=== PATIENT | male | born 1950 | race Caucasian/White ===

== ENCOUNTER → 2016-11-20 | Outpatient (CLI) | payer MEDICARE, BC ==
[2016-11-20 13:19] LABS: CHLORIDE,CL 110 mmol/L (98-110); SODIUM,NA 141 mmol/L (136-146)
== END ==
LOC: MW.CHFP 12:40
PROVIDERS: ATTEND Emergency Medicine
DX: E78.00 Pure hypercholesterolemia, unspecified (principal); I10 Essential (primary) hypertension; E11.9 Type 2 diabetes mellitus without complications
CPT/HCPCS: 36415; 80053; 80061; 83036

== ENCOUNTER → 2016-11-26 | Outpatient (CLI) | payer MEDICARE, BC | LOC: MW.CHFP 08:00 | PROVIDERS: ATTEND Emergency Medicine | DX: R51 Headache (principal); F41.9 Anxiety disorder, unspecified; E11.9 Type 2 diabetes mellitus without complications; E78.00 Pure hypercholesterolemia, unspecified | CPT/HCPCS: 99214 ==

== ENCOUNTER 2018-01-17 09:13 | Observation (INO) | payer MEDICARE, BC ==
[2018-01-17] MEDS ORDERED: Ondansetron 4 MG/2 ML SDV IVPUSH ONE (09:27)
[2018-01-17] MEDS ORDERED: Morphine 2 MG/ML Syringe IVPUSH ONE (09:27)
[2018-01-17] MEDS ORDERED: hydrALAZINE 20 MG/ML SDV IVPUSH ONE (09:27)
[2018-01-17] MEDS ORDERED: Lisinopril 10 MG Tab PO ONE (09:28)
[2018-01-17] MEDS ORDERED: Sodium Chloride 0.9% 1,000 ML IV SCH (09:30)
--- NOTE | 2018-01-17 09:31 | EDM.PDOC ---
ED HPI GENERAL MEDICAL PROBLEM - General Chief Complaint: Gastrointestinal Problem Stated Complaint: VOMITING Time Seen by Provider: 01/17/18 09:23 - History of Present Illness INITIAL COMMENTS - FREE TEXT/NARRATIVE: HISTORY AND PHYSICAL: History of present illness: Patient is a 67-year-old male presents with concern of abdominal pain nausea and vomiting he states he eats macaroni salad last night with multiple episodes of emesis subsequent system abdominal pain this is left-sided he did not take his antihypertensive medications morning. He also uses hydrocodone when necessary for chronic intermittent headache. He denies chest pain shortness of breath trauma or other concern. Review of systems: As per history of present illness and below otherwise all systems reviewed and negative. Past medical history: As per history of present illness and as reviewed below otherwise noncontributory. Surgical history: As per history of present illness and as reviewed below otherwise noncontributory. Social history: No reported history of drug or alcohol abuse. Family history: As per history of present illness and as reviewed below otherwise noncontributory. Physical exam: HEENT: Atraumatic, normocephalic, pupils reactive, negative for conjunctival pallor or scleral icterus, mucous membranes moist, throat clear, neck supple, nontender, trachea midline. Lungs: Clear to auscultation, breath sounds equal bilaterally, chest nontender. Heart: S1S2, regular, negative for clicks, rubs, or JVD. Abdomen: Soft, nondistended, no localized tenderness some mild left sided tenderness without rebound or guarding. Negative for masses or hepatosplenomegaly. Negative for costovertebral tenderness. Pelvis: Stable nontender. Genitourinary: Deferred. Rectal: Deferred. Extremities: Atraumatic, negative for cords or calf pain. Neurovascular unremarkable. Neuro: Awake, alert, oriented. Cranial nerves II through XII unremarkable. Cerebellum unremarkable. Motor and sensory unremarkable throughout. Exam nonfocal. Diagnostics: CBC CMP PT/INR troponin chest x-ray EKG CT brain CT abdomen and pelvis UA lipase Therapeutics: IV monitor saline 1 25 mL/h hydralazine 10 mg IV lisinopril 30 mg by mouth morphine sulfate 2 mg IV Zofran 4 mg IV Impression: #1 abdominal pain with vomiting #2 history of peripheral vascular disease #3 history hypertension #4 history of chronic intermittent cephalgia Definitive disposition and diagnosis as appropriate pending reevaluation and review of above. - Related Data Allergies Allergy/AdvReac Type Severity Reaction Status Date / Time No Known Allergies Allergy Verified 01/17/18 09:29 Home Meds: Home Meds Clopidogrel [Plavix] 75 mg PO DAILY 10/18/13 [History] Lisinopril [Prinivil] 30 mg PO DAILY 10/18/13 [History] atorvaSTATin [Lipitor] 10 mg PO BEDTIME 10/18/13 [History] Aspirin 325 mg PO DAILY 12/28/13 [History] Aspirin 325 mg PO DAILY 01/17/18 [History] Cilostazol [Pletal] 100 mg PO DAILY 01/17/18 [History] Saxagliptin HCl/Metformin HCl [Kombiglyze XR 2.5-1,000 MG] 1 tab PO WITHDINNER 01/17/18 [History] ED ROS GENERAL - Review of Systems Review Of Systems: ROS reveals no pertinent complaints other than HPI. ED EXAM, GENERAL - Physical Exam Exam: See Below (See dictation) Course - Vital Signs Last Recorded V/S: Last Vital Signs Temp 36.3 C 01/17/18 09:33 Pulse 77 01/17/18 10:20 Resp 20 01/17/18 10:20 BP 186/79 H 01/17/18 10:20 Pulse Ox 93 L 01/17/18 10:20 - Orders/Labs/Meds Orders: Active Orders 24 hr Category Date Time Status Cardiac Monitoring [RC] . DIRECTED Care 01/17/18 09:26 Active EKG Documentation Completion [RC] STAT Care 01/17/18 09:26 Active Pulse Oximetry [RC] ASDIRECTED Care 01/17/18 09:26 Active Abdomen Pelvis w Cont [CT] Stat Exams 01/17/18 09:26 Taken Chest 1V Frontal [CR] Stat Exams 01/17/18 09:27 Taken Head wo Cont [CT] Stat Exams 01/17/18 09:26 Taken UA W/MICROSCOPIC [URIN] Stat Lab 01/17/18 11:00 Ordered Sodium Chloride 0.9% [Normal Saline] 1,000 ml Med 01/17/18 09:30 Active IV STAT Tamsulosin [Flomax] Med 01/17/18 11:39 Once 0.4 mg PO ONETIME ONE Medication Orders Sodium Chloride (Normal Saline) 1,000 mls @ 125 mls/hr IV STAT LINA Last Admin: 01/17/18 10:05 Dose: 125 mls/hr Tamsulosin HCl (Flomax) 0.4 mg PO ONETIME ONE Stop: 01/17/18 11:40 Labs: Laboratory Tests 01/17/18 01/17/18 01/17/18 Range/Units 09:41 09:41 09:41 WBC 12.96 H (4.0-11.0) K/uL RBC 4.65 (4.50-5.90) M/uL Hgb 15.0 (13.0-17.0) g/dL Hct 42.4 (38.0-50.0) % MCV 91.2 (80.0-98.0) fL MCH 32.3 H (27.0-32.0) pg MCHC 35.4 (31.0-37.0) g/dL RDW Std Deviation 43.1 (28.0-62.0) fl RDW Coeff of Nelli 13 (11.0-15.0) % Plt Count 197 (150-400) K/uL MPV 9.80 (7.40-12.00) fL Neut % (Auto) 87.9 H (48.0-80.0) % Lymph % (Auto) 7.7 L (16.0-40.0) % Mason % (Auto) 3.9 (0.0-15.0) % Eos % (Auto) 0.3 (0.0-7.0) % Baso % (Auto) 0.2 (0.0-1.5) % Neut # (Auto) 11.4 H (1.4-5.7) K/uL Lymph # (Auto) 1.0 (0.6-2.4) K/uL Mason # (Auto) 0.5 (0.0-0.8) K/uL Eos # (Auto) 0.0 (0.0-0.7) K/uL Baso # (Auto) 0.0 (0.0-0.1) K/uL Nucleated RBC % 0.0 /100WBC Nucleated RBCs # 0 K/uL INR 1.12 Sodium 140 (136-148) mmol/L Potassium 4.2 (3.5-5.1) mmol/L Chloride 104 (98-107) mmol/L Carbon Dioxide 26.8 (21.0-32.0) mmol/L BUN 27 H (7.0-18.0) mg/dL Creatinine 1.3 (0.8-1.3) mg/dL Est Cr Clr Drug Dosing 56.15 mL/min Estimated GFR (MDRD) 54.9 ml/min Glucose 256 H (74-106) mg/dL Calcium 9.1 (8.5-10.1) mg/dL Total Bilirubin 0.4 (0.2-1.0) mg/dL AST 12 L (15-37) IU/L ALT 20 (14-63) IU/L Alkaline Phosphatase 92 (46-116) U/L Troponin I < 0.050 (0.000-0.056) ng/mL Total Protein 7.5 (6.4-8.2) g/dL Albumin 3.8 (3.4-5.0) g/dL Globulin 3.7 H (2.0-3.5) g/dL Albumin/Globulin Ratio 1.0 L (1.3-2.8) Lipase 62 L (73-393) U/L Urine Color Urine Appearance Urine pH (5.0-8.0) Ur Specific [place] (1.001-1.035) Urine Protein (NEGATIVE) mg/dL Urine Glucose (UA) (NEGATIVE) mg/dL Urine Ketones (NEGATIVE) mg/dL Urine Occult Blood (NEGATIVE) Urine Nitrite (NEGATIVE) Urine Bilirubin (NEGATIVE) Urine Urobilinogen (<2.0) EU/dL Ur Leukocyte Esterase (NEGATIVE) Urine RBC (0-2/HPF) Urine WBC (0-5/HPF) Ur Epithelial Cells (NONE-FEW) Urine Bacteria (NEGATIVE) 01/17/18 Range/Units 11:00 WBC (4.0-11.0) K/uL RBC (4.50-5.90) M/uL Hgb (13.0-17.0) g/dL Hct (38.0-50.0) % MCV (80.0-98.0) fL MCH (27.0-32.0) pg MCHC (31.0-37.0) g/dL RDW Std Deviation (28.0-62.0) fl RDW Coeff of Nelli (11.0-15.0) % Plt Count (150-400) K/uL MPV (7.40-12.00) fL Neut % (Auto) (48.0-80.0) % Lymph % (Auto) (16.0-40.0) % Mason % (Auto) (0.0-15.0) % Eos % (Auto) (0.0-7.0) % Baso % (Auto) (0.0-1.5) % Neut # (Auto) (1.4-5.7) K/uL Lymph # (Auto) (0.6-2.4) K/uL Mason # (Auto) (0.0-0.8) K/uL Eos # (Auto) (0.0-0.7) K/uL Baso # (Auto) (0.0-0.1) K/uL Nucleated RBC % /100WBC Nucleated RBCs # K/uL INR Sodium (136-148) mmol/L Potassium (3.5-5.1) mmol/L Chloride (98-107) mmol/L Carbon Dioxide (21.0-32.0) mmol/L BUN (7.0-18.0) mg/dL Creatinine (0.8-1.3) mg/dL Est Cr Clr Drug Dosing mL/min Estimated GFR (MDRD) ml/min Glucose (74-106) mg/dL Calcium (8.5-10.1) mg/dL Total Bilirubin (0.2-1.0) mg/dL AST (15-37) IU/L ALT (14-63) IU/L Alkaline Phosphatase (46-116) U/L Troponin I (0.000-0.056) ng/mL Total Protein (6.4-8.2) g/dL Albumin (3.4-5.0) g/dL Globulin (2.0-3.5) g/dL Albumin/Globulin Ratio (1.3-2.8) Lipase (73-393) U/L Urine Color YELLOW Urine Appearance CLOUDY Urine pH 6.0 (5.0-8.0) Ur Specific [place] 1.020 (1.001-1.035) Urine Protein TRACE (NEGATIVE) mg/dL Urine Glucose (UA) 500 H (NEGATIVE) mg/dL Urine Ketones TRACE H (NEGATIVE) mg/dL Urine Occult Blood LARGE H (NEGATIVE) Urine Nitrite NEGATIVE (NEGATIVE) Urine Bilirubin NEGATIVE (NEGATIVE) Urine Urobilinogen 0.2 (<2.0) EU/dL Ur Leukocyte Esterase NEGATIVE (NEGATIVE) Urine RBC TOO DIOGENES (0-2/HPF) Urine WBC 1-2 (0-5/HPF) Ur Epithelial Cells RARE (NONE-FEW) Urine Bacteria FEW (NEGATIVE) Meds: Medications Generic Name Dose Route Start Last Admin Trade Name Freq PRN Reason Stop Dose Admin Sodium Chloride 1,000 mls @ 125 mls/hr 01/17/18 09:30 01/17/18 10:05 Normal Saline IV 125 mls/hr STAT LINA Administration Tamsulosin HCl 0.4 mg 01/17/18 11:39 Flomax PO 01/17/18 11:40 ONETIME ONE Discontinued Medications Generic Name Dose Route Start Last Admin Trade Name Freq PRN Reason Stop Dose Admin Hydralazine HCl 10 mg 01/17/18 09:27 01/17/18 10:04 Apresoline IVPUSH 01/17/18 09:28 10 mg ONETIME ONE Administration Hydromorphone HCl 1 mg 01/17/18 11:36 Dilaudid IVPUSH 01/17/18 11:37 ONETIME ONE Iopamidol 85 ml 01/17/18 10:46 01/17/18 10:52 Isovue Multipack-370 (76%) IVPUSH 01/17/18 10:47 85 ml ONETIME STA Administration Ketorolac Tromethamine 30 mg 01/17/18 11:36 Toradol IVPUSH 01/17/18 11:37 ONETIME ONE Lisinopril 30 mg 01/17/18 09:28 01/17/18 10:04 Prinivil PO 01/17/18 09:29 30 mg ONETIME ONE Administration Morphine Sulfate 2 mg 01/17/18 09:27 01/17/18 10:01 Morphine IVPUSH 01/17/18 09:28 2 mg ONETIME ONE Administration Ondansetron HCl 4 mg 01/17/18 09:27 01/17/18 10:01 Zofran IVPUSH 01/17/18 09:28 4 mg ONETIME ONE Administration Departure - Departure Time of Disposition: 11:39 Disposition: Refer to Observation Condition: Good Clinical Impression: Urolithiasis, Hypertension - Discharge Information Referrals: Andrews Contreras MD [Primary Care Provider] - Forms: ED Department Discharge - My Orders Last 24 Hours: My Active Orders 01/17/18 09:26 Cardiac Monitoring [RC] . DIRECTED EKG Documentation Completion [RC] STAT Pulse Oximetry [RC] ASDIRECTED Abdomen Pelvis w Cont [CT] Stat Head wo Cont [CT] Stat 01/17/18 09:27 Chest 1V Frontal [CR] Stat 01/17/18 09:30 Sodium Chloride 0.9% [Normal Saline] 1,000 ml IV STAT 01/17/18 11:00 UA W/MICROSCOPIC [URIN] Stat 01/17/18 11:39 Tamsulosin [Flomax] 0.4 mg PO ONETIME ONE - Assessment/Plan Last 24 Hours: My Active Orders 01/17/18 09:26 Cardiac Monitoring [RC] . DIRECTED EKG Documentation Completion [RC] STAT Pulse Oximetry [RC] ASDIRECTED Abdomen Pelvis w Cont [CT] Stat Head wo Cont [CT] Stat 01/17/18 09:27 Chest 1V Frontal [CR] Stat 01/17/18 09:30 Sodium Chloride 0.9% [Normal Saline] 1,000 ml IV STAT 01/17/18 11:00 UA W/MICROSCOPIC [URIN] Stat 01/17/18 11:39 Tamsulosin [Flomax] 0.4 mg PO ONETIME ONE
[2018-01-17 10:10] LABS: CHLORIDE,CL 104 mmol/L (98-107); SODIUM,NA 140 mmol/L (136-148)
[2018-01-17] MEDS ORDERED: Iopamidol 755 MG/ML 500 ML Multipack Bottle IVPUSH STA (10:46)
[2018-01-17] MEDS ORDERED: Ketorolac 30 MG/ML SDV IVPUSH ONE (11:36)
[2018-01-17] MEDS ORDERED: HYDROmorphone 1 MG/ML Syringe IVPUSH ONE (11:36)
[2018-01-17] MEDS ORDERED: Tamsulosin 0.4 MG Cap.ER PO ONE (11:39)
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
--- NOTE | 2018-01-17 15:06 | CONS ---
DATE OF CONSULTATION: 01/17/2018 DATE OF : 1950 PRIMARY CARE PHYSICIAN: Andrews Contreras M.D. HISTORY OF PRESENT ILLNESS: A 67-year-old, he was admitted through the emergency room with sudden onset of left flank pain. His UA showed microscopic hematuria. No UTI. His white blood count was 12,000. His CT scan showed an 8 mm left upper ureteral stone. Kidneys are clean on both sides. PAST MEDICAL HISTORY: Significant for being diabetic, hypertensive, and medications for both, and he had some sort of femoral-popliteal bypass on the left side. PHYSICAL EXAMINATION: GENERAL APPEARANCE: Normal. He is alert and oriented. This is now roughly about 2 to 3 hours since I was notified of his presence. He is now pain-free. VITAL SIGNS: His blood pressure has come down close to a normal level. He has not taken his blood pressure medication this morning. ABDOMEN: Shows no abdominal masses or tenderness. RECTAL: Prostate feels benign. Does not feel enlarged. DIAGNOSIS: Left upper ureteral stone 8 mm with hydronephrosis 2+. No urinary tract infection. PLAN: He is sent home on Lorcet and Flomax. He will be scheduled for ESWL this coming . AZUCENA KERR /[id number]
[2018-01-17] MEDS ORDERED: Insulin Aspart 100 Units/ML 3 ML Pen SUBCUT SCH (17:00)
[2018-01-17] MEDS ORDERED: atorvaSTATin 10 MG Tab PO SCH (21:00)
[2018-01-18] MEDS ORDERED: Lisinopril 10 MG Tab PO SCH (09:00)
--- NOTE | 2018-01-19 18:49 | CT ---
EXAM DATE: 01/17/18 PATIENT'S AGE: 67 Patient: DAMIAN WASHINGTON Facility: [place], [place] Site . Site : 1950 Study: CT Head [id number]/7/2018 10:53:42 AM Ordering Physician: Meagan Schulz Final Report: HISTORY: Nausea and vomiting. Headache. TECHNIQUE: Noncontrast head CT. COMPARISON: 10/19/2013. FINDINGS: There is no acute ischemic infarct or acute intracranial hemorrhage. No mass effect or midline shift. No hydrocephalus. No extra-axial collection or hematoma. No acute loss of lopez-white differentiation. The mastoid air cells are clear. Mild mucosal thickening involving several ethmoid air cells and the right frontal sinus. No acute sinusitis. No acute skull fracture. IMPRESSION: No acute intracranial disease. Dictated by Pedro Greco MD @ 01/17/2018 11:10:39 AM Please note that all CT scans at this facility use dose modulation, iterative reconstruction, and/or weight-based dosing when appropriate to reduce radiation dose to as low as reasonably achievable. Dictated by: Pedro Greco MD @ 01/17/2018 11:10:43 (Electronic Signature) Report Signed by Proxy. [facility]
--- NOTE | 2018-01-19 18:50 | CR ---
EXAM DATE: 01/17/18 PATIENT'S AGE: 67 Patient: DAMIAN WASHINGTON Facility: [place], [place] Site . Site : 1950 Study: XRay Chest [id number]/7/2018 10:56:03 AM Ordering Physician: Meagna Schulz Final Report: Pain shortness of breath. Portable chest. FINDINGS : Normal cardiac mediastinal silhouette lungs are clear. No acute airspace or interstitial process. No effusion or pneumothorax. Dictated by Carmela Womack MD @ Jan 17 2018 11:13AM (Electronic Signature) Report Signed by Proxy. MICHELLE
--- NOTE | 2018-01-19 18:51 | CT ---
EXAM DATE: 01/17/18 PATIENT'S AGE: 67 Patient: DAMIAN WASHINGTON Facility: [place], [place] Site . Site : 1950 Study: CT Abdomen/Pelvis [id number]/7/2018 11:03:11 AM Ordering Physician: Meagan Schulz Final Report: INDICATION: Abdominal pain, nausea, vomiting. TECHNIQUE: 3 mm axial imaging has been performed through the abdomen and pelvis after nonionic IV contrast. Sagittal and coronal reconstructions obtained. COMPARISON: 10/19/2013 CT. FINDINGS: The lung bases are free of infiltrate. The liver, spleen, pancreas, bilateral adrenal glands are within normal limits. The right kidney demonstrates normal enhancement. There is a small cyst. No hydronephrosis or residual kidney stones on the right are noted. On the left there is significant perinephric stranding and edema. There is significant hydronephrosis. There is delay in the appearance of the nephrogram. In the mid upper ureter on image #75 there is a 6 x 5 mm ureteric stone. Distally the ureter is of normal size. No other ureter stones are noted. There are 2 mid to upper pole small kidney stones on the left. The urinary bladder is fluid filled and unremarkable. The prostate is enlarged. Moderate diverticulosis of the lower colon is noted. Appendix is within normal limits. No significant free fluid is seen. IMPRESSION: 1. Finds are consistent with high-grade obstruction due to a the mid to upper ureteric stone on the left measuring 6 x 5 mm. There is significant edema and perinephric stranding. Hydronephrosis is noted. 2. There are 2 small nonobstructing upper pole left kidney stones identified. 3. No radiopaque kidney stones are noted on the right. 4. Diverticulosis of the colon is identified without evidence for diverticulitis. No evidence for bowel obstruction. Dictated by Tyler Lopez MD @ 01/17/2018 11:30:47 AM Please note that all CT scans at this facility use dose modulation, iterative reconstruction, and/or weight-based dosing when appropriate to reduce radiation dose to as low as reasonably achievable. Dictated by: Tyler Lopez MD @ 01/17/2018 11:30:53 (Electronic Signature) Report Signed by Proxy. [facility]
== END 2018-01-17 15:40 | disposition home or self-care (01) ==
LOC: MW.ED 09:13 → MW.MS 12:13
PROVIDERS: ADMIT Urology; ATTEND Urology
DX: N13.2 Hydronephrosis with renal and ureteral calculous obstruction (principal); I10 Essential (primary) hypertension; E11.51 Type 2 diabetes mellitus with diabetic peripheral angiopathy without gangrene; E78.00 Pure hypercholesterolemia, unspecified; M19.90 Unspecified osteoarthritis, unspecified site; F17.210 Nicotine dependence, cigarettes, uncomplicated; Z79.02 Long term (current) use of antithrombotics/antiplatelets; Z79.82 Long term (current) use of aspirin; Z79.84 Long term (current) use of oral hypoglycemic drugs; Z79.899 Other long term (current) drug therapy
CPT/HCPCS: 36415; 70450; 71045; 74177; 80053; 81001; 83690; 84484; 85025; 85610; 93005; 96361; 96374; 96375; 96376; 99285; A9270; J0360; J1170; J1885; J2270; J2405; J7040; Q9967; G0378

== ENCOUNTER 2018-01-19 00:26 | Observation (INO) | payer MEDICARE, BC ==
[2018-01-19] MEDS ORDERED: Sodium Chloride 0.9% 1,000 ML IV ONE (00:36)
[2018-01-19] MEDS ORDERED: Ketorolac 30 MG/ML SDV IVPUSH ONE (00:37)
[2018-01-19] MEDS ORDERED: hydrALAZINE 20 MG/ML SDV IVPUSH ONE (01:58)
[2018-01-19] MEDS ORDERED: HYDROmorphone 1 MG/ML Syringe IVPUSH ONE (01:58)
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
[2018-01-19] MEDS ORDERED: cefTRIAXone 1 GM in Sodium Chloride 0.9% 50 ML IV ONE (02:25)
[2018-01-19] MEDS ORDERED: cefTRIAXone 1 GM in Premix Bag 1 BAG IV ONE (02:30)
[2018-01-19] MEDS ORDERED: HYDROmorphone 2 MG/ML Syringe IVPUSH PRN (04:12)
[2018-01-19] MEDS ORDERED: Ondansetron 4 MG/2 ML SDV IVPUSH PRN (04:12)
[2018-01-19] MEDS ORDERED: HYDROmorphone 1 MG/ML Syringe ONE (04:46)
[2018-01-19] MEDS: Sodium Chloride 0.9% 1,000 ML IV SCH ×2 (04:57→15:42)
[2018-01-19] MEDS: Insulin Aspart 100 Units/ML 3 ML Pen SUBCUT SCH ×5 (06:45→17:07)
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
[2018-01-19] MEDS ORDERED: HYDROmorphone 1 MG/ML Syringe IVPUSH PRN (08:15)
[2018-01-19] MEDS: Lisinopril 10 MG Tab PO SCH (08:28)
[2018-01-19] MEDS ORDERED: Acetaminophen/oxyCODONE 325-5 MG Tab PO PRN (09:00)
[2018-01-19] MEDS: Topiramate 100 MG Tab PO SCH ×2 (09:44→20:22)
[2018-01-19] MEDS ORDERED: Morphine PF 30 MG/30 ML PCA Vial IV SCH (11:30)
[2018-01-19] MEDS ORDERED: Tamsulosin 0.4 MG Cap.ER PO SCH (21:00)
[2018-01-19] MEDS ORDERED: atorvaSTATin 10 MG Tab PO SCH (21:00)
[2018-01-20] MEDS: Insulin Aspart 100 Units/ML 3 ML Pen SUBCUT SCH ×3 (00:56→13:24)
[2018-01-20] MEDS ORDERED: cefTRIAXone 1 GM in Premix Bag 1 BAG IV SCH (02:30)
[2018-01-20] MEDS: Sodium Chloride 0.9% 1,000 ML IV SCH (02:55)
[2018-01-20 05:57] LABS: CHLORIDE,CL 102 mmol/L (98-107); SODIUM,NA 135 mmol/L (136-148)
--- NOTE | 2018-01-20 08:55 | PCM.PN ---
- General Info Date of Service: 01/20/18 Admission Dx/Problem (Free Text): Admission Diagnosis/Problem Admission Diagnosis/Problem Hypertension Subjective Update: Reports feeling better this morning. No abdominal pain overnight, barely used WORKFORCE SPECIALIST. No chest pain or SOB. Functional Status: Reports: Pain Controlled, Ambulating, Urinating - Review of Systems General: Reports: No Symptoms. Denies: Fever, Weakness, Fatigue HEENT: Reports: No Symptoms. Denies: Sore Throat, Visual Changes Pulmonary: Reports: No Symptoms. Denies: Shortness of Breath Cardiovascular: Reports: No Symptoms. Denies: Chest Pain Gastrointestinal: Reports: No Symptoms. Denies: Abdominal Pain, Nausea, Vomiting Genitourinary: Reports: No Symptoms. Denies: Dysuria, Frequency, Pain, Urgency , Retention, Flank Pain Musculoskeletal: Reports: No Symptoms Skin: Reports: No Symptoms Neurological: Reports: No Symptoms Psychiatric: Reports: No Symptoms - Patient Data Vitals - Most Recent: Last Vital Signs Temp 98.9 F 01/20/18 04:00 Pulse 62 01/20/18 04:00 Resp 18 01/20/18 04:00 BP 158/79 H 01/20/18 04:00 Pulse Ox 93 L 01/20/18 04:00 Weight - Most Recent: 81.193 kg I&O - Last 24 Hours: Intake & Output 01/19/18 01/20/18 01/20/18 22:59 06:59 14:59 Intake Total 1189 522 Output Total 550 1875 Balance 639 -1353 Lab Results Last 24 Hours: Laboratory Results - last 24 hr 01/19/18 01/19/18 01/19/18 Range/Units 00:50 06:25 12:04 WBC (4.0-11.0) K/uL RBC (4.50-5.90) M/uL Hgb (13.0-17.0) g/dL Hct (38.0-50.0) % MCV (80.0-98.0) fL MCH (27.0-32.0) pg MCHC (31.0-37.0) g/dL RDW Std Deviation (28.0-62.0) fl RDW Coeff of Nelli (11.0-15.0) % Plt Count (150-400) K/uL MPV (7.40-12.00) fL Neut % (Auto) (48.0-80.0) % Lymph % (Auto) (16.0-40.0) % Jack % (Auto) (0.0-15.0) % Eos % (Auto) (0.0-7.0) % Baso % (Auto) (0.0-1.5) % Neut # (Auto) (1.4-5.7) K/uL Lymph # (Auto) (0.6-2.4) K/uL [place] # (Auto) (0.0-0.8) K/uL Eos # (Auto) (0.0-0.7) K/uL Baso # (Auto) (0.0-0.1) K/uL Nucleated RBC % /100WBC Nucleated RBCs # K/uL Sodium (136-148) mmol/L Potassium (3.5-5.1) mmol/L Chloride (98-107) mmol/L Carbon Dioxide (21.0-32.0) mmol/L BUN (7.0-18.0) mg/dL Creatinine (0.8-1.3) mg/dL Est Cr Clr Drug Dosing mL/min Estimated GFR (MDRD) ml/min Glucose (74-106) mg/dL POC Glucose 178 H 181 H (60-110) mg/dL Calcium (8.5-10.1) mg/dL Urine Color YELLOW Urine Appearance CLOUDY Urine pH 5.5 (5.0-8.0) Ur Specific [place] >= 1.030 (1.001-1.035) Urine Protein TRACE (NEGATIVE) mg/dL Urine Glucose (UA) 100 H (NEGATIVE) mg/dL Urine Ketones NEGATIVE (NEGATIVE) mg/dL Urine Occult Blood LARGE H (NEGATIVE) Urine Nitrite NEGATIVE (NEGATIVE) Urine Bilirubin NEGATIVE (NEGATIVE) Urine Urobilinogen 0.2 (<2.0) EU/dL Ur Leukocyte Esterase NEGATIVE (NEGATIVE) Urine RBC 2-4 (0-2/HPF) Urine WBC 1-2 (0-5/HPF) Ur Epithelial Cells RARE (NONE-FEW) Amorphous Sediment MODERATE (NEGATIVE) Urine Bacteria 1+ H (NEGATIVE) 01/19/18 01/19/18 01/20/18 Range/Units 16:37 23:50 05:10 WBC 9.72 (4.0-11.0) K/uL RBC 3.90 L (4.50-5.90) M/uL Hgb 12.3 L (13.0-17.0) g/dL Hct 35.7 L (38.0-50.0) % MCV 91.5 (80.0-98.0) fL MCH 31.5 (27.0-32.0) pg MCHC 34.5 (31.0-37.0) g/dL RDW Std Deviation 43.2 (28.0-62.0) fl RDW Coeff of Nelli 13 (11.0-15.0) % Plt Count 166 (150-400) K/uL MPV 10.00 (7.40-12.00) fL Neut % (Auto) 65.7 (48.0-80.0) % Lymph % (Auto) 23.7 (16.0-40.0) % Jack % (Auto) 9.3 (0.0-15.0) % Eos % (Auto) 1.2 (0.0-7.0) % Baso % (Auto) 0.1 (0.0-1.5) % Neut # (Auto) 6.4 H (1.4-5.7) K/uL Lymph # (Auto) 2.3 (0.6-2.4) K/uL Jack # (Auto) 0.9 H (0.0-0.8) K/uL Eos # (Auto) 0.1 (0.0-0.7) K/uL Baso # (Auto) 0.0 (0.0-0.1) K/uL Nucleated RBC % 0.0 /100WBC Nucleated RBCs # 0 K/uL Sodium (136-148) mmol/L Potassium (3.5-5.1) mmol/L Chloride (98-107) mmol/L Carbon Dioxide (21.0-32.0) mmol/L BUN (7.0-18.0) mg/dL Creatinine (0.8-1.3) mg/dL Est Cr Clr Drug Dosing mL/min Estimated GFR (MDRD) ml/min Glucose (74-106) mg/dL POC Glucose 169 H 159 H (60-110) mg/dL Calcium (8.5-10.1) mg/dL Urine Color Urine Appearance Urine pH (5.0-8.0) Ur Specific [place] (1.001-1.035) Urine Protein (NEGATIVE) mg/dL Urine Glucose (UA) (NEGATIVE) mg/dL Urine Ketones (NEGATIVE) mg/dL Urine Occult Blood (NEGATIVE) Urine Nitrite (NEGATIVE) Urine Bilirubin (NEGATIVE) Urine Urobilinogen (<2.0) EU/dL Ur Leukocyte Esterase (NEGATIVE) Urine RBC (0-2/HPF) Urine WBC (0-5/HPF) Ur Epithelial Cells (NONE-FEW) Amorphous Sediment (NEGATIVE) Urine Bacteria (NEGATIVE) 01/20/18 01/20/18 Range/Units 05:10 06:24 WBC (4.0-11.0) K/uL RBC (4.50-5.90) M/uL Hgb (13.0-17.0) g/dL Hct (38.0-50.0) % MCV (80.0-98.0) fL MCH (27.0-32.0) pg MCHC (31.0-37.0) g/dL RDW Std Deviation (28.0-62.0) fl RDW Coeff of Nelli (11.0-15.0) % Plt Count (150-400) K/uL MPV (7.40-12.00) fL Neut % (Auto) (48.0-80.0) % Lymph % (Auto) (16.0-40.0) % Jack % (Auto) (0.0-15.0) % Eos % (Auto) (0.0-7.0) % Baso % (Auto) (0.0-1.5) % Neut # (Auto) (1.4-5.7) K/uL Lymph # (Auto) (0.6-2.4) K/uL Jack # (Auto) (0.0-0.8) K/uL Eos # (Auto) (0.0-0.7) K/uL Baso # (Auto) (0.0-0.1) K/uL Nucleated RBC % /100WBC Nucleated RBCs # K/uL Sodium 135 L (136-148) mmol/L Potassium 3.7 (3.5-5.1) mmol/L Chloride 102 (98-107) mmol/L Carbon Dioxide 24.0 (21.0-32.0) mmol/L BUN 23 H (7.0-18.0) mg/dL Creatinine 1.2 (0.8-1.3) mg/dL Est Cr Clr Drug Dosing 60.83 mL/min Estimated GFR (MDRD) > 60.0 ml/min Glucose 140 H (74-106) mg/dL POC Glucose 139 H (60-110) mg/dL Calcium 8.2 L (8.5-10.1) mg/dL Urine Color Urine Appearance Urine pH (5.0-8.0) Ur Specific [place] (1.001-1.035) Urine Protein (NEGATIVE) mg/dL Urine Glucose (UA) (NEGATIVE) mg/dL Urine Ketones (NEGATIVE) mg/dL Urine Occult Blood (NEGATIVE) Urine Nitrite (NEGATIVE) Urine Bilirubin (NEGATIVE) Urine Urobilinogen (<2.0) EU/dL Ur Leukocyte Esterase (NEGATIVE) Urine RBC (0-2/HPF) Urine WBC (0-5/HPF) Ur Epithelial Cells (NONE-FEW) Amorphous Sediment (NEGATIVE) Urine Bacteria (NEGATIVE) Med Orders - Current: Current Medications Atorvastatin Calcium (Lipitor) 40 mg PO BEDTIME [facility] Last Admin: 01/19/18 20:22 Dose: 40 mg Sodium Chloride (Normal Saline) 1,000 mls @ 75 mls/hr IV ASDIRECTED [facility] Last Admin: 01/20/18 02:55 Dose: 75 mls/hr Ceftriaxone Sodium/Dextrose 1 (gm/ Premix) 50 mls @ 100 mls/hr IV Q24H [facility] Last Admin: 01/20/18 01:35 Dose: 100 mls/hr Insulin Aspart (Novolog) 0 unit SUBCUT Q6H [facility]; Protocol Last Admin: 01/20/18 06:30 Dose: Not Given Lisinopril (Prinivil) 30 mg PO DAILY [facility] Last Admin: 01/19/18 08:28 Dose: 30 mg Morphine Sulfate (Morphine Public Policy Analyst 30 Mg In 30 Ml) 0 mg IV ASDIRECTED [facility]; Protocol Last Admin: 01/19/18 11:43 Dose: 30 mg Ondansetron HCl (Zofran) 4 mg IVPUSH Q4H PRN PRN Reason: Nausea/Vomiting Oxycodone/Acetaminophen (Percocet 325-5 Mg) 1 - 2 tab PO Q4H PRN PRN Reason: Pain Last Admin: 01/19/18 10:08 Dose: 2 tab Tamsulosin HCl (Flomax) 0.4 mg PO BEDTIME [facility] Last Admin: 01/19/18 20:22 Dose: 0.4 mg Topiramate (Topamax) 100 mg PO BID [facility] Last Admin: 01/19/18 20:22 Dose: 100 mg Discontinued Medications Hydralazine HCl (Apresoline) 10 mg IVPUSH ONETIME ONE Stop: 01/19/18 01:59 Last Admin: 01/19/18 02:06 Dose: 10 mg Hydromorphone HCl (Dilaudid) 1 mg IVPUSH ONETIME ONE Stop: 01/19/18 01:59 Last Admin: 01/19/18 02:08 Dose: 1 mg Hydromorphone HCl (Dilaudid) 1 mg IVPUSH Q3H PRN PRN Reason: Pain Last Admin: 01/19/18 04:58 Dose: 1 mg Hydromorphone HCl (Dilaudid) Confirm Administered Dose 1 mg .ROUTE .STK-MED ONE Stop: 01/19/18 04:47 Last Admin: 01/19/18 04:59 Dose: Not Given Hydromorphone HCl (Dilaudid) 1 mg IVPUSH Q3H PRN PRN Reason: Pain Last Admin: 01/19/18 08:25 Dose: 1 mg Sodium Chloride (Normal Saline) 1,000 mls @ 999 mls/hr IV .Bolus ONE Stop: 01/19/18 01:36 Last Admin: 01/19/18 01:02 Dose: 999 mls/hr Ceftriaxone Sodium 1 gm/ (Sodium Chloride) 50 mls @ 100 mls/hr IV ONETIME ONE Stop: 01/19/18 02:54 Last Admin: 01/19/18 05:00 Dose: Not Given Ceftriaxone Sodium/Dextrose (Rocephin In Dextrose,Iso-Osm 1 Gm/50 Ml) Confirm Administered Dose 50 mls @ as directed .ROUTE .STK-MED ONE Stop: 01/19/18 02:29 Last Admin: 01/19/18 05:00 Dose: Not Given Ceftriaxone Sodium/Dextrose 1 (gm/ Premix) 50 mls @ 100 mls/hr IV ONETIME ONE Stop: 01/19/18 02:59 Last Admin: 01/19/18 02:31 Dose: 100 mls/hr Insulin Aspart (Novolog) 0 unit SUBCUT Q6H [facility]; Protocol Last Admin: 01/19/18 06:45 Dose: 1 unit Insulin Aspart (Novolog) 0 unit SUBCUT TIDAC [facility]; Protocol Last Admin: 01/19/18 17:07 Dose: 1 unit Ketorolac Tromethamine (Toradol) 30 mg IVPUSH ONETIME ONE Stop: 01/19/18 00:38 Last Admin: 01/19/18 01:05 Dose: 30 mg - Exam General: Alert, Oriented, Cooperative, No Acute Distress Neck: Supple Lungs: Clear to Auscultation, Normal Respiratory Effort Cardiovascular: Regular Rate, Regular Rhythm, No Murmurs GI/Abdominal Exam: Normal Bowel Sounds, Soft, Non-Tender Extremities: Normal Inspection, Normal Range of Motion, Non-Tender, No Pedal Edema Wound/Incisions: Healing Well Neurological: No New Focal Deficit Psy/Mental Status: Alert, Normal Affect, Normal Mood - Problem List & Annotations (1) Urolithiasis SNOMED Code(s): 10243029, 462422519 Code(s): N20.9 - URINARY CALCULUS, UNSPECIFIED Status: Acute Current Visit: No Qualifiers: Urinary calculus location: ureter Qualified Code(s): N20.1 - Calculus of ureter (2) Chronic headache SNOMED Code(s): 551897627 Code(s): R51 - HEADACHE Status: Chronic Current Visit: Yes Qualifiers: Headache type: unspecified Intractability: intractable Qualified Code(s) : R51 - Headache (3) Hypercholesteremia SNOMED Code(s): 05657328 Code(s): E78.00 - PURE HYPERCHOLESTEROLEMIA, UNSPECIFIED Status: Chronic Current Visit: Yes (4) History of femoropopliteal bypass SNOMED Code(s): 865197566 Code(s): Z98.890 - OTHER SPECIFIED POSTPROCEDURAL STATES Status: Chronic Current Visit: Yes (5) Diabetes type 2, controlled SNOMED Code(s): 52051680 Code(s): E11.9 - TYPE 2 DIABETES MELLITUS WITHOUT COMPLICATIONS Status: Chronic Current Visit: Yes (6) Hypertension SNOMED Code(s): 96335866 Code(s): I10 - ESSENTIAL (PRIMARY) HYPERTENSION Status: Chronic Current Visit: Yes Qualifiers: Hypertension type: essential hypertension Qualified Code(s): I10 - Essential (primary) hypertension - Problem List Review Problem List Initiated/Reviewed/Updated: Yes - My Orders Last 24 Hours: My Active Orders 01/19/18 09:00 Acetaminophen/oxyCODONE [Percocet 325-5 MG] 1 - 2 tab PO Q4H PRN Lisinopril [Prinivil] 30 mg PO DAILY Topiramate [Topamax] 100 mg PO BID 01/19/18 09:04 Resuscitation Status Routine 01/19/18 09:09 Ambulate [RC] ASDIRECTED Intake and Output [RC] Q12H Oxygen Therapy [RC] PRN Up ad Carmen [RC] ASDIRECTED VTE/DVT Education [RC] PER UNIT ROUTINE Vital Signs [RC] Q4H Sequential Compression Device [OM.PC] Per Unit Routine 01/19/18 11:30 Morphine PF [Morphine WORKFORCE SPECIALIST 30 MG in 30 ML] 0 mg IV ASDIRECTED 01/19/18 21:00 Tamsulosin [Flomax] 0.4 mg PO BEDTIME atorvaSTATin [Lipitor] 40 mg PO BEDTIME 01/19/18 Dinner NPO After Midnight [Nothing per Oral After Midnight Diet] [DIET] 01/20/18 02:30 cefTRIAXone [Rocephin in Dextrose,Iso-Osm 1 GM/50 ML] 1 gm Premix Bag 1 bag IV Q24H 01/21/18 05:11 BMP [BASIC METABOLIC PANEL,BMP] [CHEM] AM CBC WITH AUTO DIFF [HEME] AM - Plan Plan:: This 67 year old male admitted with hypertension and ureteral stone 1. Ureteral stone: Leukocytosis resolved. Continue with Rocephin. Consulted Dr Hernández, plan for OR today. Strain all urine. Continue PRN IV and PO pain medications. Continue Flomax. 2. Hypertension: Improved with pain control. Continue Anti-hypertensives and monitor. No chest pain or SOB. 3. Chronic headaches: Stable. Continue Topamax. 4. Hx fem- pop bypass to L leg: Hold Plavix now due to OR. VTe prophylaxis: SCDs Dispo: 1-2 days pending improvement.
[2018-01-20] MEDS ORDERED: Lidocaine 2% 5 ML SDV ONE (09:10)
[2018-01-20] MEDS ORDERED: Propofol 200 MG/20 ML SDV ONE ×2 (09:10→10:37)
[2018-01-20] MEDS ORDERED: Midazolam 1 MG/ML 2 ML SDV ONE (09:11)
[2018-01-20] MEDS ORDERED: fentaNYL 250 MCG/5 ML SDV ONE (09:11)
[2018-01-20] MEDS ORDERED: Ondansetron 4 MG/2 ML SDV ONE (09:12)
[2018-01-20] MEDS ORDERED: Glycopyrrolate 0.2 MG/ML SDV ONE (09:12)
[2018-01-20] MEDS ORDERED: Rocuronium 10 MG/ML 10 ML Syringe ONE (09:12)
[2018-01-20] MEDS ORDERED: Neostigmine Methylsulfate 1 MG/ML 5 ML Syringe ONE (09:12)
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
[2018-01-20] MEDS ORDERED: Iopamidol 408 MG/ML 50 ML SDV ONE (09:16)
[2018-01-20] MEDS ORDERED: Sodium Chloride 0.9% 40 ML ONE (10:10)
[2018-01-20] MEDS ORDERED: Sugammadex Sodium 200 MG/2 ML VIAL ONE (11:36)
[2018-01-20] MEDS: fentaNYL 100 MCG/2 ML SDV IVPUSH PRN ×2 (12:30→12:35)
--- NOTE | 2018-01-20 12:45 | PCM.POSTAN ---
POST ANESTHESIA ASSESSMENT - MENTAL STATUS Mental Status: Alert - RESPIRATORY Respiratory Status: Respiratory Rate WNL, Airway Patent, O2 Saturation Stable - CARDIOVASCULAR CV Status: Pulse Rate WNL, Blood Pressure Stable - GASTROINTESTINAL GI Status: No Symptoms - PAIN Pain Score: 5 - POST OP HYDRATION Hydration Status: Adequate & Stable - OBSERVATIONS Free Text/Narrative:: no anesthesia problems
[2018-01-20] MEDS: Topiramate 100 MG Tab PO SCH (13:14)
[2018-01-20] MEDS: Lisinopril 10 MG Tab PO SCH (13:14)
--- NOTE | 2018-01-20 13:26 | OR ---
SURGEON: Humberto Hernández M.D. DATE OF PROCEDURE: 01/20/2018 PREOPERATIVE DIAGNOSIS: 8 mm left upper ureteral stone. POSTOPERATIVE DIAGNOSIS: 8 mm left upper ureteral stone. OPERATIONS: Ureteroscopy, renoscopy, laser lithotripsy, and double-J stent placement. DESCRIPTION OF THE PROCEDURE: The patient was given general anesthesia, placed in dorsal lithotomy position, prepped and draped in sterile drapes. Cystourethroscopy was done, that was normal. A Glidewire was advanced alongside the stone all the up into the renal pelvis. The guidewire was also advanced and tends to be next to the stone. The stone was not visible, so the guidewire ended up going alongside the stone. The flexible ureteroscope was advanced over the guidewire and the stone was visualized in the upper ureter, but it was not clear, so the saline was used to clean up the debris along with the stone allowing us to bring the stone up into the kidney. The flexible ureteroscope was then traced the stone up into the renal pelvis and the stone was broken up into 3 primary pieces, 2 were eventually taken out. The larger ones were taken out with the 0 tip basket. The last one by the time we got it into the renal pelvis, was a bit too bloody to have adequate visualization. With that done, the procedure was terminated. A 6-Romanian 26 cm double-J stent was placed over the guidewire. The end was in the renal pelvis, the lower end was in the bladder. The string at the end of the stents taped to the outside of the penis. The bladder was emptied and the patient was moved to recovery room in good condition. PLAN: He will come to the office in 1 week from today. We will take the double-J stent off. AZUCENA / CIRILO /[id number]
--- NOTE | 2018-01-20 13:31 | DISCH ---
DATE OF DISCHARGE: PRIMARY CARE PHYSICIAN: Andrews Contreras M.D. This 67-year-old was admitted to the hospital for pain control because of an 8- mm left upper ureteral stone. He was taken to the operating room a day after he presented. The stone was broken up using the laser and the majority of the stone was removed. The patient was sent home with a double-J stent. He will come to the office in 1 week to have that removed. AZUCENA KERR /[id number]
--- NOTE | 2018-01-20 14:23 | CR ---
EXAMINATION: Left ureteroscopy HISTORY: Lithotripsy COMPARISON: CT dated 01/17/2018 TECHNIQUE: 5 images provided. FINDINGS/IMPRESSION: Operative control films demonstrate selection of the left ureter with removal of a proximal left stone. Subsequent placement of a left-sided nephroureteral stent is noted.
[2018-01-20] MEDS ORDERED: Insulin Aspart 100 Units/ML 3 ML Pen SUBCUT SCH (17:00)
--- NOTE | 2018-01-21 09:26 | PCM48HPAN ---
Post Anesthesia Note - EVALUATION WITHIN 48HRS OF ANESTHETIC Vital Signs in Normal Range: Yes Patient Participated in Evaluation: Yes Respiratory Function Stable: Yes Airway Patent: Yes Cardiovascular Function Stable: Yes Hydration Status Stable: Yes Pain Control Satisfactory: Yes Nausea and Vomiting Control Satisfactory: Yes Mental Status Recovered: Yes Resp Rate: 14 Blood Pressure: 140/63
--- NOTE | 2018-01-21 09:35 | PCM48HPAN ---
Post Anesthesia Note - EVALUATION WITHIN 48HRS OF ANESTHETIC Vital Signs in Normal Range: Yes Patient Participated in Evaluation: Yes Respiratory Function Stable: Yes Airway Patent: Yes Cardiovascular Function Stable: Yes Hydration Status Stable: Yes Pain Control Satisfactory: Yes Nausea and Vomiting Control Satisfactory: Yes Mental Status Recovered: Yes Resp Rate: 14 Blood Pressure: 108/61 - COMMENTS/OBSERVATIONS Free Text/Narrative:: Pt doing well post-op. States minimal pain overnight and he was able to sleep some. Denies any nausea. No apparent anesthesia complications.
== END 2018-01-20 15:00 | disposition home or self-care (01) ==
LOC: MW.ED 00:26 → MW.MS 02:23
PROVIDERS: ADMIT Internal Medicine; ATTEND Internal Medicine
DX: N20.1 Calculus of ureter (principal); I10 Essential (primary) hypertension; E11.9 Type 2 diabetes mellitus without complications; F17.210 Nicotine dependence, cigarettes, uncomplicated; E78.00 Pure hypercholesterolemia, unspecified; Z79.01 Long term (current) use of anticoagulants; Z79.84 Long term (current) use of oral hypoglycemic drugs; Z79.899 Other long term (current) drug therapy
CPT/HCPCS: 36415; 52356; 76001; 80048; 80053; 81001; 82962; 85025; 96361; 96365; 96366; 96375; 96376; 99285; A9270; G0378; J0360; J0696; J1170; J1815; J1885; J2250; J2274; J2405; J3010; J3490; J7040; Q9966; 99283; J2704

== ENCOUNTER 2020-01-10 18:46 | Emergency (ER) | payer MEDICARE, BC ==
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
[2020-01-10] MEDS ORDERED: Sodium Chloride 0.9% 10 ML Syringe FLUSH PRN (19:07)
[2020-01-10] MEDS ORDERED: Sodium Chloride 0.9% 2.5 ML Syringe FLUSH PRN (19:07)
[2020-01-10 19:46] LABS: BLOOD UREA NITROGEN,BUN 30 mg/dL (7.0-18.0); CARBON DIOXIDE,CO2 28.8 mmol/L (21.0-32.0); CHLORIDE,CL 100 mmol/L (98-107); GLUCOSE RANDOM 175 mg/dL (74-106); POTASSIUM,K 4.6 mmol/L (3.5-5.1); SODIUM,NA 138 mmol/L (136-148)
--- NOTE | 2020-01-10 20:14 | CT ---
INDICATION: Left-sided paresthesias. Left arm numbness for 3-4 days. TECHNIQUE: CT head without contrast. COMPARISON: 01/17/2018. FINDINGS: CSF spaces: Within normal limits for age. Brain parenchyma: The lopez-white differentiation is normal. No sign of mass, hemorrhage, or midline shift. Skull base and calvarium: The visualized paranasal sinuses and mastoid air cells demonstrate no acute or significant findings. The visualized orbits are grossly unremarkable. No skull fractures. IMPRESSION: No acute intracranial abnormality. Please note that all CT scans at this facility use dose modulation, iterative reconstruction, and/or weight-based dosing when appropriate to reduce radiation dose to as low as reasonably achievable. Dictated by Teddy Gonzalez MD @ Jan 10 2020 8:07PM Signed by Dr. Teddy Gonzalez @ Jan 10 2020 8:12PM
== END 2020-01-10 20:43 | disposition home or self-care (01) ==
LOC: MW.ED 18:46
DX: G56.22 Lesion of ulnar nerve, left upper limb (principal); E11.51 Type 2 diabetes mellitus with diabetic peripheral angiopathy without gangrene; I10 Essential (primary) hypertension; E78.00 Pure hypercholesterolemia, unspecified; Z79.02 Long term (current) use of antithrombotics/antiplatelets; Z79.84 Long term (current) use of oral hypoglycemic drugs; Z79.899 Other long term (current) drug therapy
CPT/HCPCS: 36415; 70450; 70450-26; 80053; 82962; 84484; 85025; 93005; 99284-25